=== PATIENT | male | born 1985 | race Caucasian/White ===

== ENCOUNTER → 2021-03-12 | Day surgery (SDC) | payer OTHER ==
[~2021-03-12] MED LIST: BENTYL 10MG CAP10 MG PO
== END | disposition home or self-care (01) ==
LOC: OR 06:51
DX: K29.51 Unspecified chronic gastritis with bleeding (principal); K64.0 First degree hemorrhoids; K64.4 Residual hemorrhoidal skin tags; R19.7 Diarrhea, unspecified; Z79.899 Other long term (current) drug therapy
CPT/HCPCS: J2250; J2704; J3010; J7040